=== PATIENT | female | born 1990 | race Caucasian/White ===

== ENCOUNTER → 2016-06-05 | Outpatient (CLI) | payer OTHER ==
[~2016-06-05] MED LIST: A; LORA-741 PO; ONDA4TAB46 PO; antivert
--- NOTE | 2016-06-05 16:16 | DIAGNOSTIC IMAGING REPORT ---
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 There is no evidence of focal pulmonary consolidation. There is no evidence of failure. No pleural effusions are visualized.[ IMPRESSION: No active disease in the chest. Electronically signed by: Jordon Montiel M.D. 06/05/2016 4:15 PM Dictated Date/Time: 06/05/2016 4:15 PM
== END | disposition home or self-care (01) ==
LOC: C.RAD1850 15:57
PROVIDERS: ATTEND Internal Medicine Rheumatology
DX: Q79.6 Ehlers-Danlos syndromes (principal); R07.9 Chest pain, unspecified

== ENCOUNTER → 2016-08-04 | Outpatient (CLI) | payer OTHER | END | disposition home or self-care (01) | LOC: C.PAPS 14:18 | PROVIDERS: ATTEND Physician Assistant | DX: Z01.419 Encounter for gynecological examination (general) (routine) without abnormal findings (principal) ==

== ENCOUNTER → 2017-03-17 | Outpatient (CLI) | payer OTHER | END | disposition home or self-care (01) | LOC: C.LABPVFM 10:20 | PROVIDERS: ATTEND Nurse Practitioner Family | DX: F41.9 Anxiety disorder, unspecified (principal); R53.83 Other fatigue; Z68.41 Body mass index [BMI] 40.0-44.9, adult ==

== ENCOUNTER → 2017-07-14 | Outpatient (CLI) | payer OTHER | END | disposition home or self-care (01) | LOC: C.LAB1850 12:07 | PROVIDERS: ATTEND Nurse Practitioner Family | DX: E55.9 Vitamin D deficiency, unspecified (principal) ==

== ENCOUNTER → 2017-09-12 | Day surgery (SDC) | payer OTHER ==
[2017-08-29 14:35] VITALS: Ht 167.6 cm; Wt 127.3 kg
[~2017-09-12] VITALS: Ht 167.6 cm; Wt 127.3 kg
[~2017-09-12] MED LIST changes: -A; +ESCI1TAB10 PO; +LIDOCAINE HCL 2% 2 ML VIAL (20MG/ML) ONE; +OMEP20TA PO; -ONDA4TAB46 PO; +PROPOFOL IV EMULSION 10 MG/ML 20 ML VIAL ONE; +SODIUM CHLORIDE 0.9% 500ML 500 ML IV ONE; -antivert
--- NOTE | 2017-09-12 09:51 | Endo History and Physical ---
History & Physical Date of Service: September 12, 2017. Chief Complaint: Rectal Pain Referring Physician: ERNESTINA Blackburn History of Present Illness 27 yo CF who presents for colonoscopy secondary to rectal pain. Past Surgical History Hx Cardiac Surgery: No Hx Internal Defibrillator: No Hx Pacemaker: No Hx Abdominal Surgery: No Hx of Implantable Prosthesis: No Hx Post-Op Nausea and Vomiting: No Hx Cancer Surgery: No Hx Thoracic Surgery: No Hx Orthopedic: No Hx Urinary Tract Surgery: No Social History Smoking Status: Never Smoker Hx Substance Use: No Hx Alcohol Use: No Allergies Coded Allergies: Amoxicillin (Verified Allergy, Mild, RASH/ HIVES, 09/12/17) Clavulanic Acid (Verified Allergy, Mild, HIVES/ RASH, 09/12/17) Nitrofurantoin (Verified Allergy, Mild, HIVES/ RASH, 09/12/17) Cefixime (Verified Adverse Reaction, Mild, rash vomiting, 09/12/17) Sodium Benzoate (Verified Adverse Reaction, Mild, rash vomiting, 09/12/17) Current Medications Reported Home Medications Medications Dose Route/Sig Max Daily Dose Days Date Category Dose Instructions Omeprazole 20 Mg Tab 1 Tab PO DAILY 90 08/29/17 Reported Lexapro (Escitalopram Oxalate) 20 Mg Tab 20 Mg PO DAILY 08/29/17 Reported Ativan (Lorazepam) 0.5 Mg Tab 0.25 Mg PO TID PRN 02/07/16 Reported TAKE 1/2 TAB Vital Signs Weight (Kilograms): 127.27 Height (Feet): 5 Height (Inches): 6 Physical Exam General Appearance: WD/WN, no apparent distress Respiratory/Chest: Auscultation: breath sounds normal Cardiovascular: Heart Auscultation: RRR Abdomen: Bowel Sounds: normal Inspection & Palpation: soft, non-distended, no tenderness, guarding & rebound Assessment and Plan Assessment: 27 yo CF who presents for colonoscopy secondary to rectal pain. Plan: Proceed with colonoscopy.
--- NOTE | 2017-09-12 10:28 | Discharge Instructions ---
Endoscopy Patient Instructions Date / Procedure(s) Performed September 12, 2017. Colonoscopy Allergy Information Coded Allergies: Amoxicillin (Verified Allergy, Mild, RASH/ HIVES, 09/12/17) Clavulanic Acid (Verified Allergy, Mild, HIVES/ RASH, 09/12/17) Nitrofurantoin (Verified Allergy, Mild, HIVES/ RASH, 09/12/17) Cefixime (Verified Adverse Reaction, Mild, rash vomiting, 09/12/17) Sodium Benzoate (Verified Adverse Reaction, Mild, rash vomiting, 09/12/17) Discharge Date / Findings September 12, 2017. Internal hemorrhoids Medication Instructions OK to resume all medications today as prescribed Reported Home Medications Medications Dose Route/Sig Max Daily Dose Days Date Category Dose Instructions Omeprazole 20 Mg Tab 1 Tab PO DAILY 90 08/29/17 Reported Lexapro (Escitalopram Oxalate) 20 Mg Tab 20 Mg PO DAILY 08/29/17 Reported Ativan (Lorazepam) 0.5 Mg Tab 0.25 Mg PO TID PRN 02/07/16 Reported TAKE 1/2 TAB Provider Instructions Activity Restrictions - No exercising or heavy lifting for 24 hours. - Do not drink alcohol the day of the procedure. - Do not drive a car or operate machinery until the day after the procedure. - Do not make any important decisions or sign important papers in 24 hours after the procedure. Following Day: - Return to full activity which may include returning to work/school. Diet Start your diet with liquids and light foods (jello, soup, juice, toast). Then eat your usual diet if not nauseated. Treatment For Common After Affects For mild abdominal pain, bloating, or excessive gas: - Rest - Eat lightly - Lie on right side Follow-Up Information Follow-up with ERNESTINA Blackburn as scheduled Anesthesia Information What You Should Know You have had a procedure that required some medicine to reduce anxiety and discomfort. This treatment is called moderate sedation. After receiving the treatment, you may be sleepy, but you will be able to breathe on your own. The effects of the treatment may last for several hours. Follow these instructions along with Activity/Diet recommendations noted above: * Do NOT do anything where dizziness or clumsiness would be dangerous. * Rest quietly at home today, then you can be up and about tomorrow. * Have a responsible person stay with you the rest of today. * You may have had an I.V. today. If so, you may take the dressing off later today. Recommendations Call your doctor if: * Trouble breathing * Continuous vomiting for more than 24 hours * Temperature above 101 degrees * Severe abdominal pain or bloating * Pain not relieved by pain medicine ordered * There is increased drainage or redness from any incision * A large amount of rectal bleeding greater than 2-3 tablespoons. (If you had a polyp/s removed or have hemorrhoids, a small amount of blood - from the rectum is to be expected.) * You have any unanswered questions or concerns. IN THE EVENT OF A SERIOUS EMERGENCY, GO TO THE NEAREST EMERGENCY ROOM Your discharge instructions were prepared by provider Robert Tavera. Patient Instructions Signature Page Vani Ruiz Patient (or Guardian) Signature/Date: I have read and understand the instructions given to me by my caregivers. Caregiver/RN/Doctor Signature/Date: The above-named patient and/or guardian has received patient instructions on this date. + Original Patient Signature Page (only) stays with chart. Please make copy for patient.
--- NOTE | 2017-09-12 10:36 | GI REPORT ---
Patient Name: Vani Ruiz Procedure Date: 09/12/2017 10:08 AM Date of : 1990 Admit Type: Outpatient Age: 27 Gender: Female Attending MD: Robert Tavera DO Procedure: Colonoscopy Providers: Robert Tavera DO Referring MD: ERNESTINA Wetzel Indications: Rectal pain Medicines: Monitored Anesthesia Care Complications: No immediate complications. Estimated Blood Loss: Estimated blood loss: none. Procedure: Pre-Anesthesia Assessment: - Prior to the procedure, a History and Physical was performed, and patient medications and allergies were reviewed. The patient's tolerance of previous anesthesia was also reviewed. The risks and benefits of the procedure and the sedation options and risks were discussed with the patient. All questions were answered, and informed consent was obtained. Prior Anticoagulants: The patient has taken no previous anticoagulant or antiplatelet agents. ASA Grade Assessment: III - A patient with severe systemic disease. After reviewing the risks and benefits, the patient was deemed in satisfactory condition to undergo the procedure. After I obtained informed consent, the scope was passed under direct vision. Throughout the procedure, the patient's blood pressure, pulse, and oxygen saturations were monitored continuously. The scope was introduced through the anus and advanced to the terminal ileum. The colonoscopy was performed without difficulty. The patient tolerated the procedure well. The quality of the bowel preparation was good. The terminal ileum, ileocecal valve, appendiceal orifice, and rectum were photographed. Findings: The perianal and digital rectal examinations were normal. Non-bleeding internal hemorrhoids were found during retroflexion. The hemorrhoids were small. Impression: - Non-bleeding internal hemorrhoids. - No specimens collected. Recommendation: - Resume previous diet. - Continue present medications. - Repeat colonoscopy in 10 months for surveillance. - Return to primary care physician as previously scheduled. Robert Tavera DO 09/12/2017 10:35:42 AM This report has been signed electronically. Note Initiated On: 09/12/2017 10:08 AM Number of Addenda: 0 I attest to the content of the Intraoperative Record and orders documented therein, exceptions below {[id number]}
--- NOTE | 2017-09-12 10:56 | Anesthesiology Progress Note ---
Anesthesia Post Op Note Date & Time September 12, 2017 at 10:56 Vital Signs Vital Signs Past 12 Hours Date Time Temp Pulse Resp B/P (MAP) Pulse Ox O2 Delivery O2 Flow Rate FiO2 09/12/17 10:45 71 18 112/76 (88) 97 Room Air 09/12/17 10:30 72 16 101/62 (75) 95 Room Air 09/12/17 09:49 36.8 99 20 99/ (33) 99 Room Air Notes Mental Status: alert / awake / arousable, participated in evaluation Pt Amnestic to Procedure: Yes Nausea / Vomiting: adequately controlled Pain: adequately controlled Airway Patency, RR, SpO2: stable & adequate BP & HR: stable & adequate Hydration State: stable & adequate Anesthetic Complications: no major complications apparent
[2017-09-12 11:00] VITALS: BP 128/84; PULSE 65; O2SAT 97
== END | disposition home or self-care (01) ==
LOC: C.GI 08:50
PROVIDERS: ATTEND Internal Medicine
DX: K62.89 Other specified diseases of anus and rectum (principal); G47.33 Obstructive sleep apnea (adult) (pediatric); K64.8 Other hemorrhoids; K21.9 Gastro-esophageal reflux disease without esophagitis; F41.9 Anxiety disorder, unspecified; F32.9 Major depressive disorder, single episode, unspecified; E66.01 Morbid (severe) obesity due to excess calories; Z88.1 Allergy status to other antibiotic agents; Z88.8 Allergy status to other drugs, medicaments and biological substances

== ENCOUNTER 2023-05-18 07:44 | Inpatient (IN) ==
[2023-05-18] MEDS ORDERED: OXYTOCIN 30 UNITS/NSS 30 UNITS/500 ML BAG IV PRN ×3 (07:48→19:06)
[2023-05-18] MEDS ORDERED: LIDOCAINE 1% LOCAL 20 ML VIAL INFIL PRN (07:48)
[2023-05-18 08:39] LABS: Hematocrit (blood only) 36.1 % (37.0-47.0); Hemoglobin 12.5 g/dl (12.0-16.0); Mean Corpuscular Hgb Conc 34.6 g/dL (32.0-36.0); Mean Corpuscular Volume 89.6 fL (80.0-100.0); Mean Platelet Volume 9.6 fL (9.4-12.4); Platelet Count 274 K/uL (130-400); RDW Coefficient of Variation 15.3 % (11.5-14.5); RDW Standard Deviation 49.5 fL (36.4-46.3); Red Blood Count 4.03 M/uL (4.20-5.40); White Blood Count 10.88 K/ul (4.8-10.8)
[2023-05-18] MEDS: LACTATED RINGER'S 1,000 ML IV PRN ×2 (09:00→12:00)
--- NOTE | 2023-05-18 09:09 | History & Physical Report ---
Date of Service May 18, 2023 Assessment & Plan (1) Obesity affecting , antepartum: (2) Gestational diabetes: (3) Encounter for induction of labor: Plan Will admit patient to L&D for induction of labor VSS Fetus cat 1 EFW 43% (04/27/24) GBS neg; Rh pos; RI Pit as needed Epidural prn BSG check every hour All questions answered Admission and Anticipated Discharge Date Admission Date: May 18, 2023 History of Present Illness Chief Complaint: INDUCTION Primary Care Provider: Leola Paul MD Vani is a 32 y/o female currently at IUP 39 0/7 WGA with an GEORGES 05/25/23 as determined by certain LMP. She comes to L&D today for her induction of labor due to GDM which is diet controlled. (+) contractions (irregular) (+) movement (-) fluid loss (-) bloody show External FHT and external uterine monitors used * Category 1 tracing * Moderate FHT variability. Had regular appointments since her 1st trimester. OB Labs: Blood Type A Positive 10/16/22 Antibody Screen NEGATIVE 10/16/22 Hemoglobin 11.3 g/dl (12.0-16.0) L 03/09/23 Hematocrit 32.9 % (37.0-47.0) L 03/09/23 Mean Corpuscular Volume 82.9 fL (80.0-100.0) 10/16/22 Platelet Count 366 K/uL (130-400) 10/16/22 Rubella IgG Antibody Immune (Immune) 10/16/22 Rapid Plasma Reagin Nonreactive (Nonreactive) 10/16/22 Hepatitis B Surface Antigen Neg (Neg) 05/11/20 Hepatitis B Surface Antigen. NON-REACTIVE (NON-REACTIVE) 10/16/22 Hepatitis C Antibody (EIA) NON-REACTIVE (NON-REACTIVE) 10/16/22 HIV (1&2) Ab and P24 Ag, 4th Gener Neg (Neg) 05/11/20 HIV (1&2) Ag and Ab Confirmation NON-REACTIVE (NON-REACTIVE) 10/16/22 OB Optional Labs: Chlamydia trachomatis RNA Not Detected (NotDetected) 10/16/22 Neisseria gonorrhoeae RNA Not Detected (NotDetected) 10/16/22 Thyroid Stimulating Hormone (TSH) 2.586 uIu/ml (0.300-4.500) 08/15/22 Labs Reviewed: cfdna-low risk--mln gbs neg Allergies Allergy/AdvReac Type Severity Reaction Status Date / Time sulfamethoxazole Allergy Intermediate Hives Verified 05/17/23 10:04 [From Sulfamethoprim] trimethoprim Allergy Intermediate Hives Verified 05/17/23 10:04 [From Sulfamethoprim] amoxicillin Allergy Mild RASH/ HIVES Verified 05/17/23 10:04 cefixime Allergy Mild rash/vomiti Verified 05/17/23 10:04 ng clavulanic acid Allergy Mild HIVES/ RASH Verified 05/17/23 10:04 sodium benzoate Allergy Mild rash/vomiti Verified 05/17/23 10:04 ng Augmentin TABS Allergy Intermediate Hives Uncoded 05/17/23 10:04 Bactrim TABS Allergy Intermediate Hives Uncoded 05/17/23 10:04 Home Medications Medication Instructions Recorded Confirmed Type cranberry 400 mg capsule 400 mg PO HS 09/16/18 05/18/23 History cholecalciferol (vitamin D3) 50 50 mcg PO HS 11/04/19 05/18/23 History mcg (2,000 unit) capsule prenat.vits,naila,sfe-kwme-zzofx 1 tab PO DAILY 10/09/22 05/18/23 History acetone (urine) test (Ketone Urine #50 ea 11/20/22 05/17/23 Rx Test strips) blood sugar diagnostic (OneTouch #150 ea 11/20/22 05/17/23 Rx Verio test strips) blood-glucose meter (OneTouch #1 ea 11/20/22 05/17/23 Rx Verio Reflect Meter) lancets 33 gauge #150 ea 11/20/22 05/17/23 Rx lansoprazole 30 mg capsule,delayed 30 mg PO DAILY #90 caps 01/10/23 05/18/23 Rx release RSV vac, preF A and preF B(PF) 120 0.5 ml IM ONCE #1 ea 05/01/23 05/17/23 Rx mcg/0.5 mL IM solution (Abrysvo) fexofenadine 180 mg tablet 180 mg PO DAILY #90 tabs 05/07/23 05/18/23 Rx (Allergy Relief (fexofenadine)) escitalopram oxalate 10 mg tablet 10 mg PO QAM #90 tabs 05/11/23 05/18/23 Rx (Lexapro) escitalopram oxalate 20 mg tablet 20 mg PO QAM #90 tabs 05/11/23 05/18/23 Rx Patient History Medical History History of chicken pox Fitz-Danlos, hypermobile type Stress incontinence Anxiety and depression Umbilical hernia Gallstones Gestational diabetes Atypical nevi GERD (gastroesophageal reflux disease) Sleep apnea Surgical History H/O umbilical hernia repair (~01/13/21) Hx laparoscopic cholecystectomy (01/13/21) History of esophagogastroduodenoscopy (EGD) [place] teeth removed H/O oral surgery S/P dilation and curettage History of colonoscopy Family History Grandmother (Maternal) Family history of diabetes mellitus Father Alcohol abuse Lung disease Brother Alcohol abuse Anxiety Grandfather Myocardial infarction Aunt Malignant neoplasm of kidney Mother Breast cancer, Onset Age: 62 Hypertension Family/Other Breast cancer Other Inflammatory bowel disease No family history of adverse response to anesthesia Denies family history of Ovarian cancer Prostate cancer Colorectal cancer Social History Smoking Status: Never smoker Second Hand Exposure: No; Do You Dip or Chew Tobacco: No; Hx Alcohol Use: No Hx Substance Use: No Preferred Language: Setswana Communication Ability: Effective Visual Impairment: No Limitations Hearing Ability: Normal Assistant Buyer Required: No Beliefs That Will Affect Care: None marital status: marital status details: Omid (34) [phone] Current Living Situation: Spouse and Family Current Living Situation Comment: Pt's (Omid) and 8 yo son (Indra) current occupational status: unemployed current occupation: homemaker How many Children do You have: 1 Other Information That Helps Us Care for You: No Feels Safe at Home: Yes Safety Concerns: Feels Safe At This Time Childhood Exposure to Second-Hand Smoke: Yes Diet: regular caffeine: Yes during the past year weight has: remained stable Dental Care, Regularly: Yes Physical Activity Frequency: Does not Exercise Seatbelt Use: always Sunscreen Use: Yes Assistive Devices: CPAP OB History Del. Date GA wks Lbr Lgth wt Sex Type del Anes Place Del Prov ? Comment 05/27/15 39 8lb 0oz M Epidu ral [facility] Dr. Amanda No GDM 07/24/20 18 Aborted-Elective Othe r [facility] D&E - Possible Turners syndrome. 01/24/22 Aborted-Spontaneous [employer] History Last menstrual period: Yes Menstrual reliability: definite Flow: normal Menstrual regularity: regular Monthly: Yes Age at menarche: 13 On control pills at conception: No Date of positive home test: 09/15/22 Menstrual history comments: cycles 29-30 days Details: last pap 01/29/[address] Atkins Review of Systems no fever, no chills and no sweats Denies changes in vision. Denies shortness of breath or respiratory difficulty. no chest pain and no palpitations no dysuria no headache(s) Physical Exam Physical Exam: General: Alert, oriented x3. Afebrile. No acute distress. Eyes: Pupils equal and reactive to light bilaterally. Extraocular movement intact bilaterally. Cardiac: Regular rate and rhythm, no murmurs/rubs/gallops. Respiratory: Clear to auscultation bilaterally a/p, no wheezes/rales/rhonchi. No increased work of breathing. Symmetrical chest rise. No respiratory distress. Abdomen: Gravid; FHR baseline at 140 - 145 bpm; Position: Vertex Pelvic: 2 / 80 / -[address] Friedman Lower Extremities: Mild bilateral LE swelling. No deep calf pain. [place]'s negative bilaterally Results & Data Vital Signs (Past 12 Hours) Vital Signs Pulse BP 05/18/23 07:57 100 H 116/76 Supervising Physician Co-Signing Physician Notes Resident Physician Supervision Note: I was present with Dr. Arboleda during the history and exam. I discussed the case with the resident and agree with the findings and plan as documented in the note. Any exceptions or clarifications are listed here: 32yo @ 39 0/7, IOL for GDM and obesity. Pitocin, AROM if needed, Plans for epidural. Patient agreeable with plan. Documented By: Huma Friedman,
[2023-05-18] MEDS ORDERED: ePHEDrine sulfate 50 MG/ML AMP ONE (11:05)
[2023-05-18] MEDS ORDERED: fentaNYL citrate PF 100 MCG/2 ML VIAL ONE (11:05)
[2023-05-18] MEDS ORDERED: fentANYL 2 MCG/ML BUPIVacaine 0.125%-NSS 100ML BAG ONE (11:06)
[2023-05-18] MEDS ORDERED: BUPIVACAINE 0.25% PF 30 ML VIAL ONE (11:06)
[2023-05-18] MEDS ORDERED: SODIUM CHLORIDE 0.9% PF INJ 10 ML VIAL ONE (11:06)
[2023-05-18] MEDS ORDERED: LIDOCAINE 2%/EPINEPHRINE 1:200,000 20 ML PF ONE (11:06)
--- NOTE | 2023-05-18 11:52 | Anesthesiology Consultation ---
Date of Service May 18, 2023 Assessment & Plan Chart Review Chart Review: Acceptable Risk for Labor Epidural Consults Requested none History Height/Weight Height: 5 ft 6 in Weight: 126.552 kg Allergies Allergy/AdvReac Type Severity Reaction Status Date / Time sulfamethoxazole Allergy Intermediate Hives Verified 05/17/23 10:04 [From Sulfamethoprim] trimethoprim Allergy Intermediate Hives Verified 05/17/23 10:04 [From Sulfamethoprim] amoxicillin Allergy Mild RASH/ HIVES Verified 05/17/23 10:04 cefixime Allergy Mild rash/vomiti Verified 05/17/23 10:04 ng clavulanic acid Allergy Mild HIVES/ RASH Verified 05/17/23 10:04 sodium benzoate Allergy Mild rash/vomiti Verified 05/17/23 10:04 ng Augmentin TABS Allergy Intermediate Hives Uncoded 05/17/23 10:04 Bactrim TABS Allergy Intermediate Hives Uncoded 05/17/23 10:04 Medications Home Medications Medication Instructions Recorded Confirmed Last Taken cranberry 400 mg capsule 400 mg PO HS 09/16/18 05/18/23 05/17/23 22:30 cholecalciferol (vitamin D3) 50 50 mcg PO HS 11/04/19 05/18/23 01/12/21 23:00 mcg (2,000 unit) capsule prenat.vits,naila,tqa-rcvb-pftww 1 tab PO DAILY 10/09/22 05/18/23 05/17/23 22:30 acetone (urine) test (Ketone Urine #50 ea 11/20/22 05/17/23 Unknown Test strips) blood sugar diagnostic (OneTouch #150 ea 11/20/22 05/17/23 Unknown Verio test strips) blood-glucose meter (OneTouch #1 ea 11/20/22 05/17/23 Unknown Verio Reflect Meter) lancets 33 gauge #150 ea 11/20/22 05/17/23 Unknown lansoprazole 30 mg capsule,delayed 30 mg PO DAILY #90 caps 01/10/23 05/18/23 05/18/23 06:30 release RSV vac, preF A and preF B(PF) 120 0.5 ml IM ONCE #1 ea 05/01/23 05/17/23 Unknown mcg/0.5 mL IM solution (Abrysvo) fexofenadine 180 mg tablet 180 mg PO DAILY #90 tabs 05/07/23 05/18/23 05/17/23 22:30 (Allergy Relief (fexofenadine)) escitalopram oxalate 10 mg tablet 10 mg PO QAM #90 tabs 05/11/23 05/18/23 05/18/23 06:30 (Lexapro) escitalopram oxalate 20 mg tablet 20 mg PO QAM #90 tabs 05/11/23 05/18/23 05/18/23 06:30 Active Medications Generic Name Dose Route Start Last Admin Trade Name Freq PRN Reason Stop Dose Admin Lactated Ringer's 1,000 mls @ 125 mls/hr 05/18/23 07:48 05/18/23 11:40 Lr IV 05/20/23 07:47 999 mls/hr .Q8H PRN Infusion L&D Protocol Protocol Oxytocin 30 units in 500 mls @ 7 mls/hr 05/18/23 07:51 05/18/23 11:03 Pitocin 30 Units/Nss IV 05/20/23 07:50 0.42 units/hr .Q24H PRN 7 mls/hr Labor Induction/Augmentation Titration Protocol 0.42 UNITS/HR Past Medical History Medical History History of chicken pox Fitz-Danlos, hypermobile type Stress incontinence Anxiety and depression Umbilical hernia Gallstones Gestational diabetes Atypical nevi GERD (gastroesophageal reflux disease) Sleep apnea Past Family History Family History Grandmother (Maternal) Family history of diabetes mellitus Father Alcohol abuse Lung disease Brother Alcohol abuse Anxiety Grandfather Myocardial infarction Aunt Malignant neoplasm of kidney Mother Breast cancer, Onset Age: 62 Hypertension Family/Other Breast cancer Other Inflammatory bowel disease No family history of adverse response to anesthesia Denies family history of Ovarian cancer Prostate cancer Colorectal cancer Past Surgical History Surgical History H/O umbilical hernia repair (~01/13/21) Hx laparoscopic cholecystectomy (01/13/21) History of esophagogastroduodenoscopy (EGD) [place] teeth removed H/O oral surgery S/P dilation and curettage History of colonoscopy Social History Smoking Status: Never smoker Do You Dip or Chew Tobacco: No Hx Alcohol Use: No Hx Substance Use: No substance use type: does not use Physical Exam Vital Signs Last Vital Signs Temp 37.0 C 05/18/23 08:31 Pulse 86 05/18/23 11:51 Resp 18 05/18/23 10:30 BP 115/58 L 05/18/23 11:51 Pulse Ox 100 05/18/23 11:48 O2 Del Method Room Air 05/18/23 08:31 Testing Laboratory Results 05/18/23 08:21 Blood Type A Positive 05/18/23 08:21 Blood Type Cancelled 05/18/23 08:21 Antibody Screen Cancelled 05/18/23 08:21 Antibody Screen NEGATIVE 05/18/23 08:21 05/18/23 05/18/23 05/18/23 10:39 09:44 08:03 POC Glucose 75 88 119 H
[2023-05-18] MEDS ORDERED: NALOXONE HCL 0.4 MG/1 ML VIAL/CARP IV PRN (11:55)
[2023-05-18] MEDS ORDERED: NALBUPHINE HCL 5 MG in SYRINGE 0 ML IV PRN (11:55)
[2023-05-18] MEDS ORDERED: SODIUM CHLORIDE 0.9% PF INJ 10 ML VIAL EPI PRN (11:55)
[2023-05-18] MEDS ORDERED: LIDOCAINE 2% MPF LOCAL 5 ML VIAL EPI PRN (11:55)
[2023-05-18] MEDS ORDERED: fentaNYL citrate PF 100 MCG/2 ML VIAL EPI STA (11:55)
[2023-05-18] MEDS ORDERED: ePHEDrine sulfate 50 MG/ML AMP IV PRN (11:55)
[2023-05-18] MEDS ORDERED: ROPIVACAINE 0.5% PF 5 MG/ML 20 ML VIAL EPI PRN (11:55)
[2023-05-18] MEDS ORDERED: BUPIVACAINE 0.25% PF 30 ML VIAL EPI STA (11:55)
[2023-05-18] MEDS ORDERED: SODIUM CHLORIDE 0.9% PF INJ 10 ML VIAL EPI STA (11:55)
[2023-05-18] MEDS ORDERED: fentaNYL citrate PF 100 MCG/2 ML VIAL EPI PRN (11:55)
[2023-05-18] MEDS ORDERED: BUPIVACAINE 0.25% PF 30 ML VIAL EPI PRN (11:55)
[2023-05-18] MEDS ORDERED: NALOXONE HCL 1 MG in SODIUM CHLORIDE 0.9% 1,000 ML IV PRN (11:55)
[2023-05-18] MEDS ORDERED: LIDOCAINE 2%/EPINEPHRINE 1:200,000 20 ML PF EPI STA (11:55)
[2023-05-18] MEDS ORDERED: diphenhydrAMINE 50 MG/ML VIAL IV PRN (11:55)
[2023-05-18] MEDS ORDERED: fentANYL 2 MCG/ML BUPIVacaine 0.125%-NSS 100ML BAG EPI PRN (11:55)
[2023-05-18] MEDS ORDERED: NURSING L&D Epidural Breakthrough Pain Update ONE (18:07)
--- NOTE | 2023-05-18 18:46 | Delivery Summary ---
Vaginal Delivery Summary Date of Service May 18, 2023 Vaginal Delivery Summary and 1st Degree LAC Vaginal Delivery Summary: Pre-delivery diagnoses: 32yo @ 39 0/7, IOL, gestational diabetes diet controlled, Fitz Danlos Syndrome - hypermobility, obesity Post-delivery diagnoses: same Procedure: spontaneous vaginal delivery Surgeon: Huma Friedman DO Complications: none Findings: Viable female . Apgars: 7/8 . Weight pending, please see [facility] records. Estimated blood loss: 300ml Description of delivery: The patient started pitocin, rec'd epidural, SROM, and progressed to complete with epidural anesthesia. She then began to push. She spontaneously vaginally delivered a viable from the cephalic presentation. The head delivered in NOE position. Nuchal x 2, reduced one but then baby delivered through quickly. The anterior shoulder delivered, followed by the posterior shoulder, followed by the body. The baby was placed on mother's abdomen and a spontaneous cry was heard. Delayed cord clamping was employed, and the cord was doubly clamped and cut. Cord blood was obtained. The placenta was delivered spontaneously intact with a 3-vessel cord. The uterus and vagina were swept of clots and debris. IV pitocin was given. The uterus became firm. The cervix, vagina, and perineum were inspected and a first degree laceration was noted, infused with lidocaine 1% for anesthetic, and repaired with 3-0 Vicryl in standard fashion. Excellent hemostasis was observed. The mother and baby are recovering in stable and good condition in the room. Sponge, needle and instrument counts were correct x 2. Huma Friedman DO [facility] [place] Vaginal Delivery Charge Vaginal Delivery Codes: 27068 global code for the antepartum, delivery, and post- Delivery Type Details: and 1st Degree LAC
[2023-05-18] MEDS ORDERED: HYDROCORTISONE ACETATE 25 MG SUPP PR PRN (19:06)
[2023-05-18] MEDS ORDERED: DIPHTHER/TETAN/PERTUS Vaccine (Tdap, Adol/Adult) 0.5mL IM ONE (19:06)
[2023-05-18] MEDS ORDERED: oxyCODONE/ACETAMINOPHEN 5mg/325mg TAB PO PRN (19:06)
[2023-05-18] MEDS ORDERED: BENZOCAINE 20% SPRY 85 APPLN/85 GM CAN EXT PRN (19:06)
[2023-05-18] MEDS ORDERED: bisacodyL 10 MG SUPP PR PRN (19:06)
[2023-05-18] MEDS: ACETAMINOPHEN 325 MG TAB PO PRN (19:25)
[2023-05-18] MEDS: IBUPROFEN 600 MG TAB PO PRN (19:25)
--- NOTE | 2023-05-19 00:14 | Anesthesia Procedure Note ---
Date of Service May 19, 2023 Anesthesia Post Epidural Note Vital Signs Vital Signs: Temp Pulse Resp BP Pulse Ox O2 Del Method 36.9 C 85 18 129/60 99 Room Air 05/18/23 20:50 05/18/23 20:50 05/18/23 20:50 05/18/23 20:50 05/18/23 20:50 05/18/23 20:50 Pain Intensity Abdomen: Pain Intensity: 2 Perineal: Pain Intensity: 3 Notes Mental Status: alert / awake / arousable Nausea / Vomiting: adequately controlled Pain: adequately controlled Airway Patency, RR, SpO2: stable & adequate BP & HR: stable & adequate Hydration State: stable & adequate Neuraxial Anesthesia: was administered and sensory block is resolving Anesthetic Complications: no major complications apparent and Pt Satisfied with anesthetic care Epidural: Removed without complications and With tip intact
[2023-05-19] MEDS: IBUPROFEN 600 MG TAB PO PRN ×4 (00:57→15:32)
[2023-05-19] MEDS: DOCUSATE SODIUM 100 MG CAP PO SCH ×2 (01:49→08:51)
[2023-05-19] MEDS: ACETAMINOPHEN 325 MG TAB PO PRN (05:21)
--- NOTE | 2023-05-19 07:08 | Obstetrical Progress Note ---
Date of Service <Melba Arboleda MD - Last Filed: 05/19/23 08:09> May 19, 2023 Assessment & Plan <Melba Arboleda MD - Last Filed: 05/19/23 08:09> (1) Encounter for care after hospital delivery: Patient with the above mentioned history and findings was evaluated at bedside and found awake, alert, oriented in all spheres, afebrile, and in no acute distress. Vital signs showed no fever and blood pressures remained stable Her blood type is A pos and most recent hemoglobin is adequate at 12.5 g/dL. GBS negative and rubella immune. Overall, patient is doing well clinically and meeting the desired milestones. Will discharge today. She is to make an appointment with her OB in 6 weeks for routine pp evaluation. Other discharge instructions also discussed. All questions were answered. <Huma Friedman DO - Last Filed: 05/19/23 08:20> (1) Encounter for care after hospital delivery: Subjective <Melba Arboleda MD - Last Filed: 05/19/23 08:09> Vani is a 32 y/o female who is now PPD # 1 following at 39 0/7 weeks. Reports feeling well overall this morning. Refers mils abdominal cramping & 3/10 pain well managed on analgesics. Voiding spontaneously. Passing gas but no bowel movements yet. Tolerating meals overnight and able to ambulate some. Some persistent lochia with some improvement this morning. Bottle feeding. Constitutional: no fever, no chills or no sweats Denies shortness of breath or difficulty breathing Cardiovascular: no chest pain or no palpitations Breast: no breast pain Genitourinary (female): no dysuria Neurologic: no headache(s) Denies changes in vision Physical Exam <Melba Arboleda MD - Last Filed: 05/19/23 08:09> General: Alert. Oriented to person, time, and place. Afebrile. No acute distress. Eyes: pupils equal and reactive to light bilaterally, extraocular movements intact. Cardiac: Regular rate and rhythm, no murmurs/rubs/gallops. Respiratory: Clear to auscultation bilaterally a/p, no wheezes/rales/rhonchi. No increased work of breathing. Symmetrical chest rise. No respiratory distress. Abdomen: Soft, nontender, nondistended. Bowel sounds present. Uterus: Uterine fundus firm, palpable at umbilicus. Lower Extremities: Mild bilateral LE swelling. No deep calf pain. Carolina's negative bilaterally. Psych: Euthymic affect. Mood and affect congruence. Regular speech rate and content. Results & Data <Melba Arboleda MD - Last Filed: 05/19/23 08:09> Vital Signs (Past 12 Hours) Vital Signs Temp Pulse Pulse Resp BP BP Pulse Ox 05/19/23 03:45 36.7 C 64 18 126/76 100 05/19/23 00:10 36.3 C L 64 16 102/65 100 05/18/23 20:50 36.9 C 85 18 129/60 99 05/18/23 20:32 85 129/60 05/18/23 20:30 36.9 C 20 05/18/23 20:17 69 125/69 05/18/23 20:02 71 126/68 05/18/23 20:00 20 05/18/23 19:47 77 133/78 05/18/23 19:32 65 120/67 05/18/23 19:30 18 05/18/23 19:15 36.8 C 18 05/18/23 19:14 68 99 05/18/23 19:09 73 99 O2 Del Method 05/19/23 03:45 Room Air 05/19/23 00:10 Room Air 05/18/23 20:50 Room Air 05/18/23 20:32 05/18/23 20:30 05/18/23 20:17 05/18/23 20:02 05/18/23 20:00 05/18/23 19:47 05/18/23 19:32 05/18/23 19:30 05/18/23 19:15 05/18/23 19:14 05/18/23 19:09 Supervising Physician <Huma Friedman DO - Last Filed: 05/19/23 08:20> Co-Signing Physician Notes Resident Physician Supervision Note: I was present with Dr. Arboleda during the history and exam. I discussed the case with the resident and agree with the findings and plan as documented in the note. Any exceptions or clarifications are listed here: PPD#1 doing well. Likely plans to go home tonight. Reviewed DC planning, will followup 6w in office. Documented By: Huma Friedman, DO
[2023-05-19] MEDS ORDERED: PRENATAL VITAMIN 1 TAB PO SCH (08:00)
[2023-05-19] MEDS ORDERED: ESCITALOPRAM OXALATE 10 MG TAB PO SCH (09:00)
[2023-05-19] MEDS ORDERED: ESCITALOPRAM OXALATE 20 MG TAB PO SCH (09:00)
[2023-05-19] MEDS ORDERED: FEXOFENADINE HCL 180 MG TAB PO SCH (09:00)
[2023-05-19] MEDS ORDERED: PANTOprazole 40 MG TAB PO SCH (09:00)
[2023-05-19 10:23] LABS: Hematocrit (blood only) 28.1 % (37.0-47.0); Hemoglobin 9.8 g/dl (12.0-16.0)
[2023-05-19] MEDS ORDERED: bisacodyL 5 MG TABEC PO SCH (20:00)
== END 2023-05-19 18:38 | disposition home or self-care (01) | DRG 807 ==
LOC: 4S1 07:44 → 4E2 21:10